=== PATIENT | male | born 1990 | race Caucasian/White ===

== ENCOUNTER 2017-10-26 23:01 | Emergency (ER) | payer OTHER, BC ==
[2017-10-26] MEDS ORDERED: HYDROmorphone 2 MG/ML SDV IM ONE ×2 (23:06→23:32)
[2017-10-26] MEDS ORDERED: Ondansetron 4 MG Tab.DIS ONE (23:11)
[2017-10-26] MEDS ORDERED: Ondansetron 4 MG Tab.DIS PO SCH (23:15)
[2017-10-27] MEDS ORDERED: Acetaminophen/HYDROcodone 325-5 MG Tab PO ONE (00:28)
--- NOTE | 2017-10-28 00:02 | ER ---
DATE SEEN: 10/26/2017 TIME SEEN: The patient was seen at 2315 hours. HISTORY OF PRESENT ILLNESS: This is a 26-year-old, 203-pound male, who has depression and chews a tin of tobacco a day, had previous PE tube surgery, presents himself at 2315 hours with history of striking his left hand with a hand-held sledgehammer of 2 to 5 pounds. He was struck in the middle of his hand. He has mild tingling in his fingers. He has marked pain in the 2, 3, and 4 surfaces of the metacarpals. He has mild difficulty in making a fist. He had no previous hand injury. Denies drinking alcohol or chemical dependence. Generally, the patient is relatively healthy otherwise. MEDICATIONS: He takes; 1. Hydroxyzine 50 q.i.d. 2. Paxil 40 mg daily. 3. Eszopiclone 3 mg at bedtime. SOCIAL HISTORY: Nonsmoker. Does drink alcohol. ALLERGIES: None. REVIEW OF SYSTEMS: Negative, except for depression. PHYSICAL EXAMINATION: VITAL SIGNS: 145/94, heart rate 114, respirations 18, oxygen saturation 100%, and temperature is 36.8 degrees. BMI is 41.1 kg/m2. Weight 145.15 kg. GENERAL: The patient is alert and walking around. He says he has 10/10 pain in his left hand. Mild subjective dysesthesia of the fingers. HEENT: Negative. Pupils do react to light. TMs negative. Pharynx without abnormality. Fair dentition. NECK: Without thyromegaly, masses, or bruits. LUNGS: Clear without rales, rhonchi, or wheezes. HEART: S1, S2. No murmur. ABDOMEN: Soft but moderate increased abdominal girth with large girth. MUSCULOSKELETAL: Left hand, he holds out and does not want to move his fingers, but can move his fingers with 50% range of motion. He has moderate pain in the central portion of his hand, metacarpals 3 and 4. Sensation is intact to fingers. Capillary refill is normal. He has a left subungual hematoma, his thumb, which involves 80% of the proximal nail surface. A super-heated needle was used to trephine the nail and a fair amount of blood resulted with no change in pains he experienced. IMAGING: X-ray accounts of a possible fracture. CAT scan was performed and no fracture noted. ER COURSE: The patient is thought to over exaggerating his pain or he has a very low pain threshold. He required 3 mg of Dilaudid. This raised the question of previous chemical dependency. On the basis of his pain needs in the ED, I suspect he is chemically dependent , this is currently evident as he uses a tin of tobacco daily. So, I have told him that he would limit him to 8 tablets of Vicodin on discharge. He was given two tablets in the ER to take now if he needs it, otherwise during the nighttime. To follow up with his doctor in the next 4 to 5 days with limitation of work of 5% to 10% of usual left hand activity. Otherwise, no other restriction, lifting, carrying and repetitive hand motion-fine motor motion and grasping. ASSESSMENT: 1. Left hand contusion without fracture. 2. Obesity. 3. Tobacco abuse. 4. Probable low pain threshold. 5. Depression. 6. Possible chem dependency /[id number] BORA/JUDY BROWN
--- NOTE | 2017-10-29 11:22 | CR ---
INDICATION: Hit palm with 2 pound sledge hammer. Pain between first and second digits. LEFT HAND: Three views of the left hand revealed no evidence of a fracture, dislocation, or other significant bone or joint abnormality. [facility]
== END 2017-10-27 00:47 | disposition home or self-care (01) ==
LOC: FB.ED 23:01
DX: S60.222A Contusion of left hand, initial encounter (principal); F32.9 Major depressive disorder, single episode, unspecified; E66.9 Obesity, unspecified; Z79.899 Other long term (current) drug therapy; Z72.0 Tobacco use; W22.8XXA Striking against or struck by other objects, initial encounter
CPT/HCPCS: 73130-LT; 73200-LT; 99000; 99283; A9270-GY; J1170

== ENCOUNTER 2018-09-21 03:43 | Emergency (ER) | payer OTHER ==
--- NOTE | 2018-09-21 04:43 | EDM.PDOC ---
ED HPI GENERAL MEDICAL PROBLEM - General Chief Complaint: Laceration Time Seen by Provider: 09/21/18 04:00 Source of Information: Reports: Patient History Limitations: Reports: No Limitations - History of Present Illness INITIAL COMMENTS - FREE TEXT/NARRATIVE: Chepe was at work, when he hit a metal equipment with a hammer,a piece flew and hit his chest wall. He complains of no chest pain but has a puncture wound the center of the chest. No shortness of breath mid chest Pain Score (Numeric/FACES): 2 - Related Data Allergies Allergy/AdvReac Type Severity Reaction Status Date / Time No Known Allergies Allergy Verified 09/21/18 03:57 Home Meds: Home Meds Eszopiclone 3 mg PO BEDTIME 10/26/17 [History] PARoxetine [Paxil] 40 mg PO DAILY 10/26/17 [History] hydrOXYzine HCl [Atarax] 50 mg PO QID PRN 10/26/17 [History] Zolpidem [Ambien] 10 mg PO BEDTIME PRN 09/21/18 [History] lamoTRIgine [Lamotrigine] 100 mg PO DAILY 09/21/18 [History] traZODone 100 mg PO BEDTIME 09/21/18 [History] Past Medical History Psychiatric History: Reports: Anxiety, Depression Social & Family History - Family History Family Medical History: Noncontributory - Tobacco Use Tobacco Use Comment: chew 1 can a day - Caffeine Use Caffeine Use: Reports: Coffee - Alcohol Use Days Per Week of Alcohol Use: 1 Number of Drinks Per Day: 3 Total Drinks Per Week: 3 - Recreational Drug Use Recreational Drug Use: No ED ROS GENERAL - Review of Systems Review Of Systems: ROS reveals no pertinent complaints other than HPI. ED EXAM, SKIN/RASH Exam: See Below Exam Limited By: No Limitations General Appearance: Alert, WD/WN Nose: Normal Inspection Throat/Mouth: Normal Inspection Head: Atraumatic Neck: Normal Inspection Respiratory/Chest: No Respiratory Distress, Lungs Clear, Other (3-4 mm puncture wound in the sternal wall.Slightly tender to palpation) Cardiovascular: Normal Peripheral Pulses, Regular Rate, Rhythm Course - Vital Signs Last Recorded V/S: Last Vital Signs Temp 98.5 F 09/21/18 03:43 Pulse 115 H 09/21/18 03:43 Resp 18 09/21/18 03:43 BP 160/117 H 09/21/18 03:43 Pulse Ox 99 09/21/18 03:43 - Orders/Labs/Meds Orders: Active Orders 24 hr Category Date Time Status Chest 2V [CR] Stat Exams 09/21/18 03:55 Taken Departure - Departure Time of Disposition: 04:41 Disposition: Home, Self-Care 01 Condition: Good Clinical Impression: Foreign body (FB) in soft tissue - Discharge Information Referrals: Neptali Arceo MD [Primary Care Provider] - - Problem List & Annotations (1) Foreign body (FB) in soft tissue SNOMED Code(s): 567656235 Code(s): M79.5 - RESIDUAL FOREIGN BODY IN SOFT TISSUE Status: Acute Current Visit: Yes - Problem List Review Problem List Initiated/Reviewed/Updated: Yes - My Orders Last 24 Hours: My Active Orders 09/21/18 03:55 Chest 2V [CR] Stat - Assessment/Plan Last 24 Hours: My Active Orders 09/21/18 03:55 Chest 2V [CR] Stat Plan: I did a chest x-ray that showed 5 mm sized metal body about 1.5 inches deep in the skin tissue close to the sternum. It's not causing any symptoms at this time , I elected to have him follow-up in the office so that an elective removal can be arranged under fluoroscopy ,if necessary. He is up-to-date on his immunizations, and he may return to work with a simple regular dressing.
--- NOTE | 2018-09-23 14:04 | CR ---
INDICATION: Pain due to foreign body penetration. Question metal central sternum area in wound area. CHEST TWO VIEWS: PA and lateral views of the chest were obtained 09/21/18-- no comparisons. A small irregular shaped metallic density is noted along the anterior left lateral aspect of the lower sternal shadow lying approximately 1 cm anterior to it on the lateral view. This could represent a metallic foreign body due to a penetrating injury. Otherwise the heart, mediastinum, and roz thorax were unremarkable. An active infiltrate, effusion or contusion was not identified. No pneumothorax was seen. IMPRESSION: Metallic foreign body at the lower left lateral aspect of the sternum. MTDD
== END 2018-09-21 04:49 | disposition home or self-care (01) ==
LOC: FB.ED 03:43
DX: S21.139A Puncture wound without foreign body of unspecified front wall of thorax without penetration into thoracic cavity, initial encounter (principal); M79.5 Residual foreign body in soft tissue; F32.9 Major depressive disorder, single episode, unspecified; F41.9 Anxiety disorder, unspecified; F17.200 Nicotine dependence, unspecified, uncomplicated; W45.8XXA Other foreign body or object entering through skin, initial encounter; Z79.899 Other long term (current) drug therapy
CPT/HCPCS: 71046; 99000; 99283

== ENCOUNTER 2019-02-15 10:20 | Emergency (ER) | payer OTHER ==
--- NOTE | 2019-02-15 10:49 | EDM.PDOC ---
ED HPI GENERAL MEDICAL PROBLEM - General Chief Complaint: ENT Problem Stated Complaint: SENT BY CLINIC Time Seen by Provider: 02/15/19 10:28 Source of Information: Reports: Patient History Limitations: Reports: No Limitations - History of Present Illness INITIAL COMMENTS - FREE TEXT/NARRATIVE: sent over from acute care clinic with concern for worsening swollen lip. Seen and evaluated yesterday - had woke up with swelling in his lip area. Had slept on the floor that night so wonders if he got bit by a bug or something, but doesn't remember anything happening. No trauma. Has not had any alcohol in last few days. Has had trouble in the past with abscesses forming around ingrown hairs and occasionally needed incise and drain. No history MRSA Yesterday started on Diflucan, nystatin swish & swallow and Keflex TID. Worse this morning when he woke up. No fever, no pain anywhere else, no other systemic symptoms. Changed to patch from chewing tobacco because his lip hurt so bad. Has taken Tylenol and ibuprofen which don't touch the pain. Healthy otherwise, on Ambien and Paxil for depression/insomnia. bottom lip Pain Score (Numeric/FACES): 8 - Related Data Allergies Allergy/AdvReac Type Severity Reaction Status Date / Time No Known Allergies Allergy Verified 02/15/19 10:24 Home Meds: Home Meds PARoxetine [Paxil] 40 mg PO DAILY 10/26/17 [History] hydrOXYzine HCl [hydrOXYzine] 50 mg PO QID PRN 10/26/17 [History] Zolpidem [Ambien] 10 mg PO BEDTIME PRN 09/21/18 [History] lamoTRIgine [Lamotrigine] 100 mg PO DAILY 09/21/18 [History] Acetaminophen with Codeine [Tylenol with Codeine #4 Tablet] 1 each PO Q4HR PRN # 15 tablet 02/15/19 [Rx] Cephalexin [Keflex] 500 mg PO QID #7 capsule 02/15/19 [Rx] Sulfamethoxazole/Trimethoprim [Bactrim Ds Tablet] 1 each PO BID #14 tablet 02/15 [Rx] cephALEXin [Cephalexin] 500 mg PO TID 02/15/19 [History] Past Medical History Psychiatric History: Reports: Anxiety, Depression Social & Family History - Family History Family Medical History: Noncontributory - Tobacco Use Smoking Status *Q: Never Smoker Tobacco Use Within Last Twelve Months: Snuff/Dip - Caffeine Use Caffeine Use: Reports: Coffee - Alcohol Use Alcohol Use History: Yes Days Per Week of Alcohol Use Comment: weekends only - Recreational Drug Use Recreational Drug Use: No - Living Situation & Occupation Occupation: Employed (works for [employer], midnight shift) ED ROS GENERAL - Review of Systems Review Of Systems: ROS reveals no pertinent complaints other than HPI. ED EXAM, GENERAL - Physical Exam Exam: See Below Free Text/Narrative:: General: alert, pleasant male in mild distress. Mouth: no lesions or other abnormalities noted on inside of mouth, mucus membranes moist, teeth slightly stained. The lower lip is significant swollen and tender to touch, with a possible firm abscess pocket just left of the center line. Face: a very small ingrown hair is present just below the area of swelling of the lip and acutely tender Neck: freely movable, no cervical lymphadenopathy Course - Vital Signs Text/Narrative:: appears to be cellulitis vs abscess of lip. Discussed attempting I&D and patient was agreeable. After cleaning with alcohol wipe X3, local anesthesia was infiltrated with 2% lidocaine with epi. A small incision was made with an 11 blade scalpel with result of bloody drainage. The base was probed with a blunt instrument through the area of suspected abscess and no purulent matter was able to be expressed. The swelling of lip did seem to decrease slightly. bleeding was controlled with pressure, and patient tolerated procedure well with no immediate complications. decision made to broaden antibiotic coverage to keflex (increased to 4X/day) plus Bactrim BID for 7 days, and warm compresses, stop diflucan and nystatin at this point as there are no signs of yeast infection. Advised to avoid chew if possible also, and not shave for a few days. Note was provided for work and I did give a short term Rx of Tylenol #4 to help with pain, this should not need to be refilled. Patient instructed to take ibuprofen along with it. Should return if worsening. He was in agreement with this plan and all questions answered. Last Recorded V/S: Last Vital Signs Temp 37.3 C 02/15/19 10:20 Pulse 101 H 02/15/19 10:20 Resp 18 02/15/19 10:20 BP 154/94 H 02/15/19 10:20 Pulse Ox 98 02/15/19 10:20 Departure - Departure Time of Disposition: 11:36 Disposition: Home, Self-Care 01 Condition: Good Clinical Impression: Cellulitis - Discharge Information *PRESCRIPTION DRUG MONITORING PROGRAM REVIEWED*: Yes *COPY OF PRESCRIPTION DRUG MONITORING REPORT IN PATIENT JORGE A: No Prescriptions: Acetaminophen with Codeine [Tylenol with Codeine #4 Tablet] 1 each PO Q4HR PRN # 15 tablet PRN Reason: Pain Cephalexin [Keflex] 500 mg PO QID #7 capsule Sulfamethoxazole/Trimethoprim [Bactrim Ds Tablet] 1 each PO BID #14 tablet Instructions: Skin Abscess, [id number] Referrals: Neptali Arceo MD [Primary Care Provider] - Forms: ED Department Discharge Additional Instructions: warm compress throughout the day today and tomorrow. It may start to have some pus come out, this is a good thing Tylenol #4 script provided for today and tomorrow. No alcohol, and careful with additional tylenol dosing not to exceed 4000mg per day. This also has some interaction with Ambien so be aware of that. can take ibuprofen 600mg TID also once the swelling has gone down, can put bacitracin if a wound remains there and open for when you are out in public or anywhere with dust if not improved in 24-48 hours, or if worsening, return to ER as IV antibiotics may be needed at that point Antibiotics: continue keflex script - increase to 4 times a day, additional dosing sent to pharmacy start Bactrim 2X/day stop fluconazole and nystatin swish/swallow if can avoid chewing for a few days and use patch instead this would also be helpful no shaving in area
== END 2019-02-15 11:50 | disposition home or self-care (01) ==
LOC: FB.ED 10:20
DX: K13.0 Diseases of lips (principal)
CPT/HCPCS: 10060; 99282-25

== ENCOUNTER 2020-07-12 04:03 | Emergency (ER) | payer OTHER ==
[2020-07-12] MEDS ORDERED: Succinylcholine 200 MG/10 ML MDV IV ONE (04:04)
[2020-07-12] MEDS ORDERED: Rocuronium 100 MG/10 ML MDV IV ONE (04:04)
[2020-07-12] MEDS ORDERED: Propofol 200 MG/20 ML SDV IV ONE (04:04)
[2020-07-12] MEDS: Flumazenil 0.1 MG/ML 5 ML MDV IVPUSH STA (04:11)
[2020-07-12] MEDS: Sodium Chloride 0.9% 1,000 ML IV ONE (04:11)
--- NOTE | 2020-07-12 04:20 | EDM.PDOC ---
ED HPI GENERAL MEDICAL PROBLEM - General Chief Complaint: General Stated Complaint: OVERDOSE Time Seen by Provider: 07/12/20 04:05 Source of Information: Reports: EMS, Old Records. Denies: Patient History Limitations: Reports: Altered Mental Status - History of Present Illness INITIAL COMMENTS - FREE TEXT/NARRATIVE: 29 yo male here via EMS after someone notified police of a potential OD. Was alert when EMS arrived, but sonorous respirations and unresponsive by the time EMS arrived at the ER. Multiple medical bottles are empty and brought in by EMS. Had a recent break up with a girlfriend. Empty pill bottles include acetaminophen, lorazepam, Baclofen, lamotrigine, paroxetine, trazodone, and Quetiapine. Onset: Today Duration: Other (unsure) Location: Reports: Generalized Quality: Reports: Other (pain not reported) Severity: Severe Improves with: Reports: None Worsens with: Reports: Other (? time) Context: Reports: Other (See HPI) Associated Symptoms: Reports: No Other Symptoms Treatments D[employer] WORKER: Reports: Other (see below) (none) - Related Data Allergies Allergy/AdvReac Type Severity Reaction Status Date / Time No Known Allergies Allergy Verified 02/15/19 10:24 Home Meds: Home Meds PARoxetine [Paxil] 40 mg PO DAILY 10/26/17 [History] hydrOXYzine HCL [hydrOXYzine] 50 mg PO QID PRN 10/26/17 [History] Zolpidem [Ambien] 10 mg PO BEDTIME PRN 09/21/18 [History] lamoTRIgine [Lamotrigine] 100 mg PO DAILY 09/21/18 [History] Acetaminophen with Codeine [Tylenol with Codeine #4 Tablet] 1 each PO Q4HR PRN #15 tablet 02/15/19 [Rx] Sulfamethoxazole/Trimethoprim [Bactrim Ds Tablet] 1 each PO BID #14 tablet 02/15/19 [Rx] cephALEXin [Cephalexin] 500 mg PO TID 02/15/19 [History] cephALEXin [Keflex] 500 mg PO QID #7 capsule 02/15/19 [Rx] Baclofen 10 mg PO TID 07/12/20 [History] LORazepam [Ativan] 1 mg PO 07/12/20 [History] QUEtiapine [SEROquel] 25 mg PO TID 07/12/20 [History] traZODone HCl [Trazodone HCl] 50 mg PO 07/12/20 [History] Past Medical History Psychiatric History: Reports: Anxiety, Depression Social & Family History - Family History Family Medical History: Noncontributory - Caffeine Use Caffeine Use: Reports: Coffee - Living Situation & Occupation Occupation: Employed (works for [employer], midnight shift) ED ROS GENERAL - Review of Systems Review Of Systems: Unable To Obtain (obtunded) Reason Not Obtained: unresponsive ED EXAM, GENERAL - Physical Exam Exam: See Below General Appearance: Alert, WD/WN, No Apparent Distress, Obese Eye Exam: Bilateral Eye: PERRL (pupils bilaterally constricted) Ears: Normal External Exam, Normal Canal Ear Exam: Bilateral Ear: Auricle Normal, Canal Normal Nose: Normal Inspection, No Blood Throat/Mouth: Normal Inspection, Normal Lips, Normal Oropharynx. No: No Airway Compromise (sonorous respirations) Head: Atraumatic, Normocephalic Neck: Normal Inspection Respiratory/Chest: No Respiratory Distress, Lungs Clear, Normal Breath Sounds, No Accessory Muscle Use Cardiovascular: Regular Rate, Rhythm, No Edema GI/Abdominal: Normal Bowel Sounds, Soft, Non-Tender, No Distention Extremities: Normal Inspection Neurological: Unresponsive Skin Exam: Warm, Dry, Normal Color, No Rash, Wound/Incision (L wrist, superficial) #1 Interpretation EKG Date: 07/12/20 Time: 04:40 Rhythm: NSR Rate (Beats/Min): 125 [place]: Normal P-Wave: Present ST-T: Normal (inverted T wave in III) QT: Normal Comparison: NA - No Prior EKG Course - Orders/Labs/Meds Orders: Active Orders 24 hr Category Date Time Status Cardiac Monitoring [RC] .As Directed Care 07/12/20 04:06 Active EKG Documentation Completion [RC] ASDIRECTED Care 07/12/20 04:38 Active James Catheter Insertion [Insert Urinary Catheter] [OM. Care 07/12/20 04:15 Ordered PC] Q24H Urinary Catheter Assessment [RC] QSHIFT Care 07/12/20 04:06 Active Chest 1V Frontal [CR] Stat Exams 07/12/20 04:30 Taken CORONAVIRUS COVID-19 ROSSI [MOLEC] Stat Lab 07/12/20 04:34 Received NS + KCl 20mEq/L [Normal Saline with 20 mEq KCl] 1,000 Med 07/12/20 05:15 Active ml IV ASDIRECTED EKG 12 Lead [EK] Routine Ther 07/12/20 04:38 Ordered Medication Orders Potassium Chloride/Sodium Chloride (Normal Saline With 20 Meq Kcl) 1,000 mls @ 500 mls/hr IV ASDIRECTED ABRAN Last Admin: 07/12/20 05:12 Dose: 500 mls/hr Documented by: MANNY Labs: Laboratory Tests 07/12/20 07/12/20 07/12/20 Range/Units 04:06 04:06 04:06 WBC 7.1 (4.5-12.0) X10-3/uL RBC 5.24 (4.30-5.75) x10(6)uL Hgb 16.1 (13.5-17.8) g/dL Hct 47.0 (30.0-51.3) % MCV 89.7 (80-96) fL MCH 30.7 (27.7-33.6) pg MCHC 34.2 (32.2-35.4) g/dL RDW 12.4 (11.5-15.5) % Plt Count 202 (125-369) X10(3)uL Sodium 145 (135-145) mmol/L Potassium 3.4 L (3.5-5.3) mmol/L Chloride 106 (100-110) mmol/L Carbon Dioxide 24 (21-32) mmol/L BUN 12 (7-18) mg/dL Creatinine 0.9 (0.70-1.30) mg/dL Est Cr Clr Drug Dosing TNP Estimated GFR (MDRD) > 60 (>60) BUN/Creatinine Ratio 13.3 (9-20) Glucose 114 (80-116) mg/dL Calcium 8.2 L (8.6-10.2) mg/dL Total Bilirubin 0.6 (0.1-1.3) mg/dL AST 41 H D (5-25) IU/L ALT 84 H D (12-36) U/L Alkaline Phosphatase 65 (56-112) IU/L Total Protein 7.2 (6.0-8.0) g/dL Albumin 3.7 (3.5-5.2) g/dL Globulin 3.5 g/dL Albumin/Globulin Ratio 1.1 Urine Color (YELLOW) Urine Appearance (CLEAR) Urine pH (5.0-6.5) Ur Specific Valentine (1.010-1.025) Urine Protein (NEGATIVE) mg/dL Urine Glucose (UA) (NORMAL) mg/dL Urine Ketones (NEGATIVE) mg/dL Urine Occult Blood (NEGATIVE) Urine Nitrite (NEGATIVE) Urine Bilirubin (NEGATIVE) Urine Urobilinogen (NEGATIVE) mg/dL Ur Leukocyte Esterase (NEGATIVE) Urine RBC (0-5) Urine WBC (0-5) Ur Squamous Epith Cells (NS,R,O) Urine Bacteria (NS) Urine Opiates Screen (NEGATIVE) Ur Oxycodone Screen (NEGATIVE) Ur Propoxyphene Screen (NEGATIVE) Acetaminophen < 2 L (<2) ug/mL Ur Barbituates Screen (NEGATIVE) Ur Tricyclics Screen (NEGATIVE) Ur Phencyclidine Scrn (NEGATIVE) Ur Amphetamine Screen (NEGATIVE) Urine MDMA Screen (NEGATIVE) U Benzodiazepines Scrn (NEGATIVE) U Cocaine Metab Screen (NEGATIVE) U Marijuana (THC) Screen (NEGATIVE) Ethyl Alcohol 0.30 H* (<0.03) % 07/12/20 07/12/20 Range/Units 04:26 04:26 WBC (4.5-12.0) X10-3/uL RBC (4.30-5.75) x10(6)uL Hgb (13.5-17.8) g/dL Hct (30.0-51.3) % MCV (80-96) fL MCH (27.7-33.6) pg MCHC (32.2-35.4) g/dL RDW (11.5-15.5) % Plt Count (125-369) X10(3)uL Sodium (135-145) mmol/L Potassium (3.5-5.3) mmol/L Chloride (100-110) mmol/L Carbon Dioxide (21-32) mmol/L BUN (7-18) mg/dL Creatinine (0.70-1.30) mg/dL Est Cr Clr Drug Dosing Estimated GFR (MDRD) (>60) BUN/Creatinine Ratio (9-20) Glucose (80-116) mg/dL Calcium (8.6-10.2) mg/dL Total Bilirubin (0.1-1.3) mg/dL AST (5-25) IU/L ALT (12-36) U/L Alkaline Phosphatase (56-112) IU/L Total Protein (6.0-8.0) g/dL Albumin (3.5-5.2) g/dL Globulin g/dL Albumin/Globulin Ratio Urine Color Yellow (YELLOW) Urine Appearance Clear (CLEAR) Urine pH 5.0 (5.0-6.5) Ur Specific Valentine 1.010 (1.010-1.025) Urine Protein Negative (NEGATIVE) mg/dL Urine Glucose (UA) Normal (NORMAL) mg/dL Urine Ketones Negative (NEGATIVE) mg/dL Urine Occult Blood Negative (NEGATIVE) Urine Nitrite Negative (NEGATIVE) Urine Bilirubin Negative (NEGATIVE) Urine Urobilinogen Normal (NEGATIVE) mg/dL Ur Leukocyte Esterase Negative (NEGATIVE) Urine RBC 0-5 (0-5) Urine WBC 0-5 (0-5) Ur Squamous Epith Cells Rare (NS,R,O) Urine Bacteria Occasional H (NS) Urine Opiates Screen Negative (NEGATIVE) Ur Oxycodone Screen Negative (NEGATIVE) Ur Propoxyphene Screen Negative (NEGATIVE) Acetaminophen (<2) ug/mL Ur Barbituates Screen Negative (NEGATIVE) Ur Tricyclics Screen Negative (NEGATIVE) Ur Phencyclidine Scrn Negative (NEGATIVE) Ur Amphetamine Screen Negative (NEGATIVE) Urine MDMA Screen Negative (NEGATIVE) U Benzodiazepines Scrn Negative (NEGATIVE) U Cocaine Metab Screen Negative (NEGATIVE) U Marijuana (THC) Screen Negative (NEGATIVE) Ethyl Alcohol (<0.03) % Meds: Medications Generic Name Dose Route Start Last Admin Trade Name Freq PRN Reason Stop Dose Admin Potassium Chloride/Sodium Chloride 1,000 mls @ 500 mls/hr 07/12/20 05:15 07/12/20 05:12 Normal Saline With 20 Meq Kcl IV 500 mls/hr ASDIRECTED ABRAN Administration Discontinued Medications Generic Name Dose Route Start Last Admin Trade Name Freq PRN Reason Stop Dose Admin Flumazenil 0.2 mg 07/12/20 04:04 07/12/20 04:11 Romazicon IVPUSH 07/12/20 04:05 0.2 mg ONETIME STA Administration Sodium Chloride 1,000 mls @ 1,000 mls/hr 07/12/20 04:08 07/12/20 04:11 Normal Saline IV 07/12/20 05:07 1,000 mls/hr .BOLUS ONE Administration Potassium Chloride/Dextrose/Sod Cl Confirm 07/12/20 05:11 07/12/20 05:13 D5 1/2 Ns W/ 20 Meq/L Kcl Administered 07/12/20 05:12 Not Given Dose 1,000 mls @ as directed .ROUTE .STK-MED ONE Midazolam HCl 2 mg 07/12/20 05:29 Versed 1 Mg/Ml IVPUSH 07/12/20 05:30 ONETIME ONE Midazolam HCl Confirm 07/12/20 05:31 07/12/20 05:35 Versed 1 Mg/Ml Administered 07/12/20 05:32 Not Given Dose 2 mg .ROUTE .STK-MED ONE - Radiology Interpretation Free Text/Narrative:: CXR- - Re-Assessments/Exams Free Text/Narrative Re-Assessment/Exam: 07/12/20 04:19 Anesthesia here to intubate, minimal response to pain. Sonorous respirations. Departure - Departure Time of Disposition: 05:50 Disposition: DC/Tfer to Acute Hospital 02 Condition: Critical Clinical Impression: Altered level of consciousness Drug overdose Qualifiers: Encounter type: initial encounter Injury intent: intentional self-harm Qualified Code(s): T50.902A - Poisoning by unspecified drugs, medicaments and biological substances, intentional self-harm, initial encounter Alcohol intoxication Qualifiers: Complication of substance-induced condition: uncomplicated Qualified Code(s): F10.920 - Alcohol use, unspecified with intoxication, uncomplicated - Discharge Information *PRESCRIPTION DRUG MONITORING PROGRAM REVIEWED*: Not Applicable *COPY OF PRESCRIPTION DRUG MONITORING REPORT IN PATIENT JORGE A: Not Applicable Forms: ED Department Discharge - My Orders Last 24 Hours: My Active Orders 07/12/20 04:06 Cardiac Monitoring [RC] .As Directed Urinary Catheter Assessment [RC] QSHIFT 07/12/20 04:15 James Catheter Insertion [Insert Urinary Catheter] [OM.PC] Q24H 07/12/20 04:30 Chest 1V Frontal [CR] Stat 07/12/20 04:34 CORONAVIRUS COVID-19 ROSSI [MOLEC] Stat 07/12/20 04:38 EKG Documentation Completion [RC] ASDIRECTED EKG 12 Lead [EK] Routine 07/12/20 05:15 NS + KCl 20mEq/L [Normal Saline with 20 mEq KCl] 1,000 ml IV ASDIRECTED - Assessment/Plan Last 24 Hours: My Active Orders 07/12/20 04:06 Cardiac Monitoring [RC] .As Directed Urinary Catheter Assessment [RC] QSHIFT 07/12/20 04:15 James Catheter Insertion [Insert Urinary Catheter] [OM.PC] Q24H 07/12/20 04:30 Chest 1V Frontal [CR] Stat 07/12/20 04:34 CORONAVIRUS COVID-19 ROSSI [MOLEC] Stat 07/12/20 04:38 EKG Documentation Completion [RC] ASDIRECTED EKG 12 Lead [EK] Routine 07/12/20 05:15 NS + KCl 20mEq/L [Normal Saline with 20 mEq KCl] 1,000 ml IV ASDIRECTED
[2020-07-12 04:27] LABS: ACETAMINOPHEN < 2 ug/mL (<2)
[2020-07-12] MEDS: NS + KCl 20mEq/L 1,000 ML IV SCH (05:12)
[2020-07-12] MEDS: 1/2 NS W ONE (05:13)
[2020-07-12] MEDS: KCL ONE (05:13)
[2020-07-12] MEDS: D5 ONE (05:13)
[2020-07-12] MEDS: Midazolam 1 MG/ML 2 ML SDV IVPUSH ONE (05:33)
[2020-07-12] MEDS: Midazolam 1 MG/ML 2 ML SDV ONE (05:35)
--- NOTE | 2020-07-12 06:38 | PCM.SN.2 ---
- Free Text/Narrative Note: ANESTHESIA SERVICES Date: 07/12/2020 Time: 5 to 0558 Dx: Moderate OD, Possible Loss of Protective Airway Reflexes and Morbid Obesity Rx: Endotracheal Intubation and Ventilation Assist and Management [[id number]] I was called to the ED for the above listed procedures by the ED physician. Upon arrival, the patient was partially obstructing with a NPT in place. Oxygen per nasal cannula at 5 L/Min and a SpO2 at 92%. I was requested to Intubate this patient with an apparent large fatty neck, juarez and small mouth. Endotracheal Intubation: After preparing all needed equipment, I then preoxygenated this patient with 100% O2 per an Ambu-Bag to a SpO2 of 97%. I then instructed the TEST TECHNICIAN to push 200 mg's of Propofol and 180mg's of Succinylcholine IV which she did. Using a #4 Glidescope, I intubated this patient X 1 attempt placing a #8.0 ETT. I had bilateral breath sounds and positive continuous EtCO2. It should be noted there was a lot of food debris at, around and maybe down pass the vocal cords. The ED physician was made aware. The CXR showed good ETT placement. Ventilation Assist and Management: I was requested by the ER physician to manage the respiratoy side of this patient. I hand ventilated this patient for over 90 minutes using the continuous EtCO2 monitor for rate and depth of ventilation. During this time, the patient received 2 mg's of Versed [ER meds] and a total of 100 mg's of Zemuron in divided doses for ventilation control. His vital signs remain stable and his pupils remained at nearly pin-point and slightly reactive to light. See the nursing notes for exact vital sign numbers. Thank You YASIR Castaneda CRNA
--- NOTE | 2020-07-12 11:09 | CR ---
INDICATION: ET tube placement. CHEST, ONE VIEW: A single AP supine view of the chest was obtained 07/12/20 and compared with 09/21/18. Study was extremely limited due to positioning. Endotracheal tube was noted to be within the trachea as visualized on a single view lying with its tip approximately 3.3 cm cranial to the marguerite. Overlying EKG leads are noted. No gross consolidating pneumonia was identified. MTDD
== END 2020-07-12 06:00 ==
LOC: FB.ED 04:03
DX: T42.6X2A Poisoning by other antiepileptic and sedative-hypnotic drugs, intentional self-harm, initial encounter (principal); T42.4X2A Poisoning by benzodiazepines, intentional self-harm, initial encounter; T42.8X2A Poisoning by antiparkinsonism drugs and other central muscle-tone depressants, intentional self-harm, initial encounter; T39.1X2A Poisoning by 4-Aminophenol derivatives, intentional self-harm, initial encounter; F41.9 Anxiety disorder, unspecified; F32.9 Major depressive disorder, single episode, unspecified; Z79.899 Other long term (current) drug therapy
CPT/HCPCS: 31500; 36415; 51702; 71045; 80053; 80305; 80307; 81001; 85027; 87635; 93005; 96361; 96374; 99285; J0330; J2250; J2704; J3480; J3490; J7030; U0002

== ENCOUNTER 2022-07-07 09:56 | Emergency (ER) | payer OTHER ==
[2022-07-07 10:48] LABS: ESTIMATED GFR 103 mL/min (>60)
== END 2022-07-07 13:04 | disposition home or self-care (01) ==
LOC: FB.ED 09:56
DX: R10.9 Unspecified abdominal pain (principal)
CPT/HCPCS: 36415; 74150; 80048; 81001; 85025; 99284

== ENCOUNTER 2024-12-09 08:32 | Day surgery (SDC) | payer OTHER ==
[2024-12-09] MEDS ORDERED: fentaNYL 100 MCG/2 ML SDV IV ONE (08:33)
[2024-12-09] MEDS ORDERED: Midazolam 1 MG/ML 2 ML SDV IV ONE (08:33)
[2024-12-09] MEDS ORDERED: Lidocaine 2% 100 MG/5 ML Syringe IVPUSH ONE (08:33)
[2024-12-09] MEDS ORDERED: Sodium Chloride 0.9% 10 ML Syringe FLUSH PRN (09:18)
[2024-12-09] MEDS: Lactated Ringers 1,000 ML IV SCH (10:30)
[2024-12-09] MEDS: ceFAZolin 2 GM Vial IVPUSH ONE (11:00)
[2024-12-09] MEDS: Bupivacaine 0.5% 30 ML SDV INJECT ONE (11:03)
[2024-12-09] MEDS: Lidocaine 1% with EPINEPHrine 1:100,000 20 ML MDV INJECT ONE (11:03)
== END 2024-12-09 12:00 | disposition home or self-care (01) ==
LOC: FB.SDS 08:32
PROVIDERS: ATTEND Surgery
DX: L02.411 Cutaneous abscess of right axilla (principal); E66.01 Morbid (severe) obesity due to excess calories; Z88.8 Allergy status to other drugs, medicaments and biological substances; Z68.42 Body mass index [BMI] 45.0-49.9, adult; Z87.891 Personal history of nicotine dependence; Z79.899 Other long term (current) drug therapy
CPT/HCPCS: 00400; 87070; 87075; 87205; J0665; J0690; J2004; J2250; J3010; J7120